=== PATIENT | male | born 1970 | race Caucasian/White ===

== ENCOUNTER 2019-01-25 01:35 | Emergency (ER) | payer MEDICAID ==
[~2019-01-25] VITALS: Ht 188 cm; Wt 89.4 kg
[2019-01-25 02:17] VITALS: BP_SYST 140
[2019-01-25 03:00] VITALS: BP_SYST 132
== END 2019-01-25 03:00 | disposition home or self-care (01) ==
LOC: SED 01:35
DX: I89.1 Lymphangitis (principal); Z88.2 Allergy status to sulfonamides; Z71.6 Tobacco abuse counseling
CPT/HCPCS: 99283

== ENCOUNTER 2019-12-08 00:03 | Emergency (ER) | payer MEDICAID ==
[~2019-12-08] VITALS: Ht 188 cm; Wt 92.5 kg
[2019-12-08 00:30] VITALS: BP_SYST 156
--- NOTE | 2019-12-08 00:30 | NUR ---
PT AAO AND AMBULATORY C/O RLQ ABDOMINAL PAIN ALL DAY THAT HAS BEEN PROGRESSIVELY GETTING WORSE TODAY AND NO RELIEF WITH OTC MEDS. PT REPORTS NAUSEA AND PAIN SCALE 9/10.
--- NOTE | 2019-12-08 00:48 | NUR ---
Patient to ER bed 4 to gown for evaluation. Side rails up. Report given to MARLIN.
--- NOTE | 2019-12-08 00:50 | NUR ---
ER Dr. REAGAN at bedside examining patient.
[2019-12-08] MEDS ORDERED: NACL 0.9% 1,000 ML IV ONE (00:56)
[2019-12-08] MEDS ORDERED: ONDANSETRON HCL 4 MG/2 ML VIAL IVP ONE (01:00)
[2019-12-08] MEDS ORDERED: MORPHINE 2 MG/ML INJ. SYRINGE IVP ONE (01:00)
--- NOTE | 2019-12-08 01:29 | NUR ---
PT REPORTS PAIN IS NOW TRAVELING TOWARDS HIS BACK ON THE RIGHT SIDE. PAIN IS A 8 OUT OF 10.
[2019-12-08 01:31] LABS: BASOPHILS # (AUTO) 0.1 K/uL (0.0-0.2); BASOPHILS % (AUTO) 0.4 % (0.0-2.0); EOSINOPHILS % (AUTO) 0.3 % (0.0-4.0); HEMATOCRIT 50.6 % (36-54); HEMOGLOBIN 16.8 g/dL (14.0-18.0); LYMPHOCYTES # (AUTO) 0.9 K/uL (1.0-5.5); LYMPHOCYTES % (AUTO) 6.7 % (20.5-51.5); MEAN CORPUSCULAR HEMOGLOBIN 29 pg (27-31); MEAN CORPUSCULAR HGB CONC 33 % (32-36); MEAN CORPUSCULAR VOLUME 89 fL (79.0-98.0); NEUTROPHILS # (AUTO) 11.1 K/uL (1.8-7.7); NEUTROPHILS % (AUTO) 84.6 % (40.0-70.0); PLATELET COUNT (AUTO) 218 K/uL (130-430); RED BLOOD CELL COUNT(AUTO) 5.71 MIL/uL (4.2-6.2); WHITE BLOOD COUNT (AUTO) 13.1 K/uL (4.8-10.8)
--- NOTE | 2019-12-08 01:35 | NUR ---
# 20 gauge angiocath placed to LAC. Use of asceptic technique. Opsite placed over site. Blood return noted. Flushed with 10 cc of normal saline. No evidence of infiltration noted. Patient tolerated well.
[2019-12-08 01:42] LABS: CALCIUM 9.5 mg/dL (8.4-11.0); CREATININE 1.88 mg/dL (0.55-1.30); POTASSIUM 3.9 mmol/L (3.5-5.1)
[2019-12-08 01:46] LABS: PROTHROMBIN TIME 10.1 SECS (9.5-12.5)
--- NOTE | 2019-12-08 01:48 | NUR ---
Patient transported to radiology via GURNEY, accompanied by CYNDY.
[2019-12-08 01:49] LABS: ALBUMIN 3.4 g/dL (3.4-4.8); TOTAL BILIRUBIN 0.7 mg/dL (0.0-1.0)
--- NOTE | 2019-12-08 01:58 | NUR ---
PT RETURNED FROM CT. PLACED ON MONITOR.
--- NOTE | 2019-12-08 02:30 | NUR ---
PT PAIN A 5 OUT OF 10. PT NAUSEOUS AND VOMITING. MD NOTIFIED.
[2019-12-08] MEDS ORDERED: KETOROLAC TROMETHAMINE 30 MG VIAL IVP ONE (02:45)
[2019-12-08] MEDS ORDERED: PANTOPRAZOLE SODIUM 40 MG/VIAL (PROTONIX) IVP ONE (02:45)
--- NOTE | 2019-12-08 03:20 | NUR ---
PT REPORTS PAIN AFTER THE TORADOL 30MG IV PUSH IS NOW 0/10. PT IS STILL EXPERIENCING HEARTBURN FROM THE FREQUENT VOMITING. MD NOTIFIED. AWAITING CHANGE IN ORDERS.
[2019-12-08] MEDS ORDERED: PROCHLORPERAZINE EDISYLATE 10 MG/2 ML VIAL IVP ONE (04:00)
[2019-12-08] MEDS ORDERED: MAG-AL HYDROX/SIMETH 30 ML UDC PO ONE (04:00)
[2019-12-08 04:35] VITALS: BP_SYST 147
--- NOTE | 2019-12-08 04:35 | NUR ---
Patient given written and verbal discharge instructions and verbalizes understanding. ER MD discussed with patient the results and treatment provided. Patient in stable condition. ID arm band removed. IV catheter removed intact and dressing applied, no active bleeding. Rx of NORCO given. Patient educated on pain management and to follow up with PMD. Pain Scale 0/10. Opportunity for questions provided and answered. Medication side effect fact sheet provided.
[2019-12-08 04:38] LABS: BILIRUBIN,URINE NEGATIVE (NEGATIVE); BLOOD, URINE NEGATIVE (NEGATIVE); CLARITY/URINE CLEAR (CLEAR); COLOR,URINE YELLOW (YELLOW); GLUCOSE,URINE NEGATIVE (NEGATIVE); KETONES,URINE NEGATIVE (NEGATIVE); LEUKOCYTE ESTERASE ,URINE NEGATIVE (NEGATIVE); NITRITE, URINE NEGATIVE (NEGATIVE); PROTEIN URINE NEGATIVE (NEGATIVE); UROBILINOGEN,URINE 0.2 (0.2-1.0)
== END 2019-12-08 04:35 | disposition home or self-care (01) ==
LOC: SED 00:03
DX: N20.0 Calculus of kidney (principal); K80.20 Calculus of gallbladder without cholecystitis without obstruction; I10 Essential (primary) hypertension; F12.90 Cannabis use, unspecified, uncomplicated
CPT/HCPCS: 36415; 74176; 80053; 81003; 85025; 85610; 85730; 96374; 96375; 99285; C9113; J0780; J1885; J2270; J2405; J7030

== ENCOUNTER 2021-02-19 09:46 | Emergency (ER) | payer MEDICAID ==
[~2021-02-19] VITALS: Ht 188 cm; Wt 91.6 kg
[2021-02-19 09:46] VITALS: BP_SYST 142
--- NOTE | 2021-02-19 09:46 | NUR ---
BROUGHT BACK TO BED #8 AND TRIAGED, REPORT GIVEN TO SRIDEVI
[2021-02-19] MEDS ORDERED: KETOROLAC TROMETHAMINE 30 MG VIAL IVP ONE (10:00)
[2021-02-19] MEDS ORDERED: NACL 0.9% 1,000 ML IV ONE (10:00)
[2021-02-19] MEDS ORDERED: fentaNYL CITRATE/PF 100 MCG/2 ML AMP IVP ONE (10:00)
[2021-02-19] MEDS ORDERED: ONDANSETRON HCL 4 MG/2 ML VIAL IVP ONE (10:00)
--- NOTE | 2021-02-19 10:00 | NUR ---
ER at bedside examining patient.
--- NOTE | 2021-02-19 10:15 | NUR ---
Pt. bib father with c/o left flank pain 12/07 with N/V, stated started at about 0630 this am and has hx. of kidney stones.
[2021-02-19 10:25] LABS: BASOPHILS % (AUTO) 0.3 % (0.0-2.0); EOSINOPHILS # (AUTO) 0.3 K/uL (0.0-0.4); EOSINOPHILS % (AUTO) 1.8 % (0.0-4.0); HEMATOCRIT 48.7 % (36-54); HEMOGLOBIN 16.7 g/dL (14.0-18.0); LYMPHOCYTES # (AUTO) 1.4 K/uL (1.0-5.5); LYMPHOCYTES % (AUTO) 9.5 % (20.5-51.5); MEAN CORPUSCULAR HEMOGLOBIN 30 pg (27-31); MEAN CORPUSCULAR HGB CONC 34 % (32-36); MEAN CORPUSCULAR VOLUME 87 fL (79.0-98.0); MONOCYTES # (AUTO) 0.9 K/uL (0.0-1.0); MONOCYTES % (AUTO) 6.1 % (1.7-9.3); NEUTROPHILS # (AUTO) 12.1 K/uL (1.8-7.7); NEUTROPHILS % (AUTO) 82.3 % (40.0-70.0); PLATELET COUNT (AUTO) 217 K/uL (130-430); RED BLOOD CELL COUNT(AUTO) 5.61 MIL/uL (4.2-6.2); RED CELL DISTRIBUTION WIDTH 13.1 % (9.0-15.0); WHITE BLOOD COUNT (AUTO) 14.7 K/uL (4.8-10.8)
--- NOTE | 2021-02-19 10:25 | NUR ---
# 20 gauge angiocath placed to right hand. Use of asceptic technique. Opsite placed over site. Blood return noted. No evidence of infiltration noted. Patient tolerated well.
--- NOTE | 2021-02-19 10:40 | NUR ---
medicated with Zofran and Toradol, fentenyl was ordered but pt. declined.
[2021-02-19 10:48] LABS: CREATININE 1.62 mg/dL (0.55-1.30); POTASSIUM 3.5 mmol/L (3.5-5.1)
[2021-02-19 10:54] LABS: ALBUMIN 3.6 g/dL (3.4-4.8); TOTAL BILIRUBIN 0.5 mg/dL (0.0-1.0)
--- NOTE | 2021-02-19 10:55 | NUR ---
Patient transported to radiology via wheelchair, accompanied by staff.
--- NOTE | 2021-02-19 11:00 | NUR ---
Pt to CT scan via wheelchair.
--- NOTE | 2021-02-19 11:23 | NUR ---
Pt reports that pain is currently 0/10.
--- NOTE | 2021-02-19 12:25 | NUR ---
Pt resting quietly in no distress awaiting CT result and disposition.
[2021-02-19] MEDS ORDERED: TRAM50TA2 PO (13:44)
[2021-02-19] MEDS ORDERED: ONDA-8 TL (13:44)
[2021-02-19] MEDS ORDERED: HYDROcodone/ACETAMIN 10-325 MG TAB PO ONE (13:45)
--- NOTE | 2021-02-19 13:55 | NUR ---
Patient given written and verbal discharge instructions and verbalizes understanding. ER discussed with patient the results and treatment provided. Patient in stable condition. ID arm band removed. IV catheter removed intact and dressing applied, no active bleeding. Rx of Zofran and Tramadol given. Patient educated on pain management and to follow up with PMD. Pain Scale 3. Opportunity for questions provided and answered. Medication side effect fact sheet provided.
[2021-02-19 13:59] VITALS: BP_SYST 144
== END 2021-02-19 13:55 | disposition home or self-care (01) ==
LOC: SED 09:46
DX: N23 Unspecified renal colic (principal); Z88.2 Allergy status to sulfonamides; Z88.5 Allergy status to narcotic agent; Z79.899 Other long term (current) drug therapy
CPT/HCPCS: 36415; 74176; 76376; 80053; 81002; 83690; 85025; 96374; 96375; 99284; J1885; J2405

== ENCOUNTER 2021-04-08 18:49 | Emergency (ER) | payer MEDICAID ==
[~2021-04-08] VITALS: Ht 188 cm; Wt 91.6 kg
[~2021-04-08 18:49] MED LIST: ONDA-8 TL; TRAM50TA2 PO
[2021-04-08 18:55] VITALS: BP_SYST 152
[2021-04-08] MEDS ORDERED: LIDOCAINE 2%, 20 ML MDV INJ ONE (20:15)
[2021-04-08] MEDS ORDERED: TRIAMCINOLONE ACETONIDE 40 MG/ML IM ONE (20:15)
[2021-04-08] MEDS ORDERED: METOCLOPRAMIDE HCL 10 MG TABLET PO ONE (21:45)
[2021-04-08] MEDS ORDERED: DIPHENHYDRAMINE HCL 25 MG CAPSULE PO ONE (21:45)
[2021-04-08 21:53] VITALS: BP_SYST 148
== END 2021-04-08 21:53 | disposition home or self-care (01) ==
LOC: SED 18:49
DX: R51.9 Headache, unspecified (principal); M79.18 Myalgia, other site; Z88.2 Allergy status to sulfonamides; Z79.899 Other long term (current) drug therapy
CPT/HCPCS: 20552; 70450; 76376; 96372; 99284; J2001; J3301; J8597; Q0163

== ENCOUNTER 2021-04-12 14:28 | Emergency (ER) | payer MEDICAID ==
[~2021-04-12] VITALS: Ht 188 cm; Wt 91.6 kg
[2021-04-12 14:43] VITALS: BP_SYST 152
[2021-04-12 15:24] LABS: BASOPHILS % (AUTO) 0.5 % (0.0-2.0); EOSINOPHILS # (AUTO) 0.3 K/uL (0.0-0.4); EOSINOPHILS % (AUTO) 3.7 % (0.0-4.0); HEMATOCRIT 48.2 % (36-54); HEMOGLOBIN 16.5 g/dL (14.0-18.0); LYMPHOCYTES # (AUTO) 1.7 K/uL (1.0-5.5); LYMPHOCYTES % (AUTO) 21.4 % (20.5-51.5); MEAN CORPUSCULAR HEMOGLOBIN 29 pg (27-31); MEAN CORPUSCULAR HGB CONC 34 % (32-36); MEAN CORPUSCULAR VOLUME 86 fL (79.0-98.0); MONOCYTES # (AUTO) 0.7 K/uL (0.0-1.0); MONOCYTES % (AUTO) 8.1 % (1.7-9.3); NEUTROPHILS # (AUTO) 5.4 K/uL (1.8-7.7); NEUTROPHILS % (AUTO) 66.3 % (40.0-70.0); PLATELET COUNT (AUTO) 228 K/uL (130-430); RED BLOOD CELL COUNT(AUTO) 5.63 MIL/uL (4.2-6.2); WHITE BLOOD COUNT (AUTO) 8.1 K/uL (4.8-10.8)
[2021-04-12 15:43] LABS: ANION GAP 8 (5-15); CALCIUM 8.6 mg/dL (8.4-11.0); CHLORIDE 104 mmol/L (98-107); CREATININE 1.23 mg/dL (0.55-1.30); GLUCOSE 89 mg/dL (70-99); POTASSIUM 3.6 mmol/L (3.5-5.1); SODIUM SERUM 140 mmol/L (136-145); UREA NITROGEN, BLOOD 18 mg/dL (8-21)
[2021-04-12 15:45] LABS: INR 0.9 (0.80-1.20); PROTHROMBIN TIME 9.9 SECS (9.5-12.5)
[2021-04-12 15:48] LABS: ALANINE AMINOTRANSFERASE 69 U/L (12-78); ALBUMIN 3.4 g/dL (3.4-4.8); ASPARTATE AMINOTRANSFERASE 24 U/L (10-37); TOTAL BILIRUBIN 0.5 mg/dL (0.0-1.0)
[2021-04-12 16:00] LABS: C-REACTIVE PROTEIN QUANT < 0.2 mg/dL (0-0.5)
[2021-04-12 16:01] LABS: GFR AFRICAN AMERICAN 81 mL/min (>90)
[2021-04-12 16:09] LABS: ERYTHROCYTE SEDIMENTATION RATE 1 MM/HR (0-15)
[2021-04-12 16:28] VITALS: BP_SYST 139
== END 2021-04-12 16:28 | disposition home or self-care (01) ==
LOC: SED 14:28
DX: R51.9 Headache, unspecified (principal); I10 Essential (primary) hypertension; Z88.2 Allergy status to sulfonamides; Z79.899 Other long term (current) drug therapy
CPT/HCPCS: 36415; 80053; 85025; 85610-TC; 85651-TC; 85730-TC; 86140; 99283